=== PATIENT | female | born 1960 | race Caucasian/White ===

== ENCOUNTER → 2024-11-11 10:06 | Outpatient (REF) | payer MEDICARE, OTHER, SELFPAY | LOC: MRI 3T 10:06 | DX: M54.42 Lumbago with sciatica, left side (principal) | CPT/HCPCS: 72148 ==

== ENCOUNTER → 2024-12-09 13:39 | Outpatient (REF) | payer MEDICARE, OTHER, SELFPAY | LOC: HWRAD 13:39 | DX: Z78.0 Asymptomatic menopausal state (principal) | CPT/HCPCS: 77080 ==